=== PATIENT | female | born 2000 | race African-American/Black ===

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

== ENCOUNTER 2024-08-04 17:34 | Emergency (ER) | payer SELFPAY ==
[~2024-08-04] VITALS: Ht 167.6 cm; Wt 72.7 kg
[2024-08-04 17:44] VITALS: BP 108/53; PULSE 84; RESP 18; TEMP 100.7; O2SAT 98
[2024-08-04 20:41] LABS: COVID AG,FIA SOURCE NASAL SWAB
[2024-08-04] MEDS: ACETAMINOPHEN 325 MG TABLET PO ONE (20:49)
[2024-08-04 20:52] LABS: INFLUENZA TYPE A NEGATIVE FOR TYPE A (NEGATIVE); INFLUENZA TYPE B NEGATIVE FOR TYPE B (NEGATIVE)
[2024-08-04 20:53] LABS: SARS-COV2 (COVID) ANTIGEN,FIA Negative (Negative)
[2024-08-04] MEDS ORDERED: OSEL75CA45 PO (22:10)
== END 2024-08-04 22:42 | disposition home or self-care (01) ==
LOC: EMS 17:34
DX: J11.1 Influenza due to unidentified influenza virus with other respiratory manifestations (principal); F17.210 Nicotine dependence, cigarettes, uncomplicated; Z98.890 Other specified postprocedural states; Z20.822 Contact with and (suspected) exposure to COVID-19
CPT/HCPCS: 87804; 99283